=== PATIENT | female | born 1975 | race Caucasian/White ===

== ENCOUNTER 2023-02-23 20:34 | Emergency (ER) | payer OTHER, SELFPAY ==
[2023-02-23 20:37] VITALS: BP 157/72; PULSE 75; RESP 16; TEMP 36.8; O2SAT 98
--- NOTE | 2023-02-23 20:53 | ED.GENADUL_ITS ---
Discharge Plan Disposition Patient Disposition: Home Discharge Details Clinical Impression: Tick bite Primary Care Provider: None,None ED Provider: Rakel Quiñones Home Meds and New Rx's Prescriptions: New doxycycline hyclate 100 mg capsule 100 mg PO BID Qty: 20 0RF doxycycline hyclate 100 mg tablet 100 mg PO BID 10 Days Qty: 20 0RF Discharge Instructions Instructions: Tick Bite (ED) Additional Instructions: Take your antibiotic as prescribed Return with spreading redness, fever, worsening pain Discharge Data Discharge Date/Time-TO BE ENTERED AT DEPARTURE: 02/23/23 21:08 Medical Decision Making This 47-year-old female presents with erythema migrans rash to right axillary region, will initiate doxycycline for suspected Lyme disease Will initiate a 10-day course of twice daily Afebrile and nontoxic Return precautions discussed and patient expressed understanding HPI General Date/Time Provider Initiated Documentation: 02/23/23 20:40 . HPI Narrative: This 47-year-old female presents with tick bite to right arm with bull's-eye that she noted today. Denies any additional symptoms or fever. Denies chance of Related Data Home Medications Medication Instructions Recorded Confirmed doxycycline hyclate 100 mg capsule 100 mg PO BID #20 caps 02/23/23 doxycycline hyclate 100 mg tablet 100 mg PO BID 10 days #20 tabs 02/24/23 Previous Rx's Medication Instructions Recorded doxycycline hyclate 100 mg capsule 100 mg PO BID #20 caps 02/23/23 doxycycline hyclate 100 mg tablet 100 mg PO BID 10 days #20 tabs 02/24/23 General Stated Complaint: InsectBite JANAY: 4 PFSH All Active Problems (Updated 02/23/23 @ 20:57 by LARS Collado) Tick bite (Acute) Social History Smoking/Tobacco Use Status: Current every day Smoking risk assessment performed?: Yes Alcohol Intake: never Substance use type: does not use Do you feel safe at home: Yes Do you feel safe in your relationship?: Yes Exam Narrative Exam Narrative: Erythema migrans rash noted to right axillary region Course Vital Signs Vital signs: Vital Signs Temperature 36.8 C 02/23/23 20:37 Pulse 75 02/23/23 20:37 Respiratory Rate 16 02/23/23 20:37 Blood Pressure 157/72 H 02/23/23 20:37 Pulse Oximetry 98 02/23/23 20:37 Temperature 36.8 C 02/23/23 20:37 Temperature Source Temporal Artery Scan 02/23/23 20:37 Pulse 75 02/23/23 20:37 Respiratory Rate 16 02/23/23 20:37 Respiratory Effort Normal, Non-Labored 02/23/23 20:40 Blood Pressure 157/72 H 02/23/23 20:37 Blood Pressure Position Sitting 02/23/23 20:37 Pulse Oximetry 98 02/23/23 20:37 Oxygen Delivery Method Room Air 02/23/23 20:37 Oxygen Flow Rate 0 02/23/23 20:37 Pain Level 0 02/23/23 20:37
--- NOTE | 2023-02-23 21:44 | NUR.NOTE ---
Referral placed to establish primary care. None established
--- NOTE | 2023-02-24 16:48 | NUR.NOTE ---
Nursing Note: Patient needed her prescription sent to [facility] in [facility]
== END 2023-02-23 21:08 | disposition home or self-care (01) ==
LOC: ER 21:08
PROVIDERS: Emergency Provider Physician Assistant
DX: S41.151A Open bite of right upper arm, initial encounter (principal); W57.XXXA Bitten or stung by nonvenomous insect and other nonvenomous arthropods, initial encounter
CPT/HCPCS: 99283

== ENCOUNTER 2024-10-03 09:50 | Outpatient (REF) | payer BC, SELFPAY ==
[2024-10-03 15:42] LABS: Bilirubin Negative (Negative); Blood Negative (Negative); Clarity Cloudy (Clear); Glucose Negative (Negative); Ketones Negative (Negative); Leukocyte Esterase Negative (Negative); Nitrite Negative (Negative); Specific Gravity 1.025 (1.005-1.025); Urobilinogen 0.2 mg/dL (Up to 0.2); pH 5.5 (5-8)
[2024-10-03 15:44] LABS: ALT 14 U/L (14-59); AST 20 U/L (15-37); Albumin 3.9 g/dL (3.4-5.0); Alkaline Phosphatase 76 U/L (46-116); Anion Gap 7.5 mmol/L (3-11); BUN 13 mg/dL (7-18); Bilirubin, Total 0.28 mg/dL (0.2-1.0); CO2 29.5 mmol/L (21.0-32.0); CREATININE 0.6 mg/dL (0.55-1.02); Calcium 9.9 mg/dL (8.5-10.1); Calculated LDL 146 mg/dL (<100); Chloride 107 mmol/L (98-107); Cholesterol 244 mg/dL (<200); Estimated GFR 109.28 (mL/min/1.73m2); Glucose 106 mg/dL (74-106); HDL Cholesterol 77 mg/dL (40-60); Potassium 5.5 mmol/L (3.5-5.1); Sodium 144 mmol/L (136-145); Total Protein 7.5 g/dL (6.4-8.2); Triglyceride 106 mg/dL (<150)
[2024-10-03 16:24] LABS: COMMENT (LAB VIEW ONLY) 117.44 mg/dL; Microalb ug/mg Crea 9.6 ug/mg Cr
== END 2024-10-03 09:51 | disposition home or self-care (01) ==
LOC: NCHCN 09:50
PROVIDERS: PCP Nurse Practitioner Family; Visit Provider Nurse Practitioner Family
DX: E78.5 Hyperlipidemia, unspecified (principal); I10 Essential (primary) hypertension
CPT/HCPCS: 80053; 80061; 81003; 82043; 82570

== ENCOUNTER 2024-10-21 00:40 | Outpatient (CLI) | payer BC, SELFPAY ==
--- NOTE | 2024-10-21 | DI.MAMMO_ITS ---
Exam(s) MAMMO SCREENING EXAM: MAMMO SCREENING CLINICAL HISTORY: Screening, Z12.31 TECHNIQUE: Mammograms were interpreted according to the usual protocol including computer analysis w Teachable CAD system, tomosynthesis and C-view imaging. COMPARISON: No exams were available for comparison previous examinations have requested not yet rece ived. FINDINGS: The breasts are composed of scattered fibroglandular densities, Breast Density category B. No suspicious masses or suspicious microcalcifications are seen. No skin thickening or abnormal axillary lymph nodes are seen. IMPRESSION: BI-RADS Category 1, Negative mammogram Yearly screening mammography is recommended. Breast Density - Category B, scattered fibroglandular densities. A negative radiographic report should not delay biopsy if a dominant or clinically suspicious mass is present. Up to ten percent of cancers are not identified on mammography. A negative report may reinforce clinical impression. Adenosis and dense breasts may obscure an underlying neoplasm. False positive reports average 6 to 10%. Patient will receive a letter notifying them of these results.
--- NOTE | 2024-10-21 | DI.CTLCSR_ITS ---
Exam(s) CT CHEST LUNG CANCER SCREEN EXAM: CT CHEST LUNG CANCER SCREEN CLINICAL HISTORY: Screening, nicotine dependence, F17.200 TECHNIQUE: Imaging Protocol: Axial computed tomography images with coronal and sagittal reformatted images were created and reviewed. Low dose screening protocol. COMPARISON: No exams were available for comparison FINDINGS: Tracheobronchial tree: No bronchiectasis or mucus plugging. Mediastinum and Staci: No dominant adenopathy or fluid collection. Pulmonary parenchyma: No consolidation or dominant measurable mass. Minimal emphysematous changes. No significant interstitial changes. Lung Nodules: 5 millimeter mean diameter nodule medially in the left upper lobe. 3 millimeter nodule lateral superior segment of the right lower lobe. 4 millimeter nodule anterior lingula. 3.5 millim eter nodule inferior lingula. Pleura: No effusion. No pneumothorax. Heart: The heart is not dilated. No coronary artery calcifications are seen. No pericardial effusion. Aorta: Thoracic aorta non-dilated. Upper abdomen: Unremarkable. Bones: Unremarkable for age. Soft Tissues: Unremarkable. IMPRESSION: Scattered peripheral micro nodules, largest medial left upper lobe measuring 5 millimeters. Lung RADS Cat 2 - Benign Appearance / Behavior: Nodules with a very low likelihood of becoming a clin ically active cancer due to size or lack of growth Lung-RADS 1.0 CATEGORIES: Category 0 - Prior chest CT exam(s) being located for comparison. Category 1 - Annual screening in 12 months. No nodules or definitely benign nodules. Category 2 - Annual screening in 12 months. Benign appearance. Nodules with low likelihood of becomin g active cancer. Category 3 - 6-month follow-up. Probably benign. Short-term follow-up suggested. Nodules with low lik elihood of becoming active cancer. Category 4A - 3-month follow-up and CT/PET if >8 mm in size. Suspicious finding. Findings which requi re additional testing. Category 4B - Findings which require additional testing and tissue sampling. Category 4X - Category 3 or 4 nodules with additional features or imaging findings that increases the suspicion of malignancy. Modifier S- Potentially clinically significant findings (non lung cancer) RADIATION DOSE DELIVERED: !Error Total DLP DATA REPOSITORY: All CT scans at this facility are submitted to the National Radiology Data Registry (NRDR) Dose Index Registry (DIR) with the [employer] (ACR). RADIATION OPTIMIZATION: All CT scans at this facility use at least one of these dose optimization te chniques: automated exposure control; mA and/or kV adjustment per patient size (includes targeted exa ms where dose is matched to clinical indication); or iterative reconstruction.
== END 2024-10-21 01:00 ==
LOC: DI 00:40
PROVIDERS: PCP Nurse Practitioner Family; Visit Provider Nurse Practitioner Family
DX: Z12.31 Encounter for screening mammogram for malignant neoplasm of breast (principal); F17.200 Nicotine dependence, unspecified, uncomplicated; R92.323 Mammographic fibroglandular density, bilateral breasts
CPT/HCPCS: 71271; 77063; 77067

== ENCOUNTER 2024-10-21 09:04 | Outpatient (CLI) | payer BC, SELFPAY ==
[2024-10-21 09:13] LABS: Anion Gap 10.2 mmol/L (3-11); BUN 12 mg/dL (7-18); CO2 29.8 mmol/L (21.0-32.0); CREATININE 0.7 mg/dL (0.55-1.02); Calcium 9.7 mg/dL (8.5-10.1); Chloride 104 mmol/L (98-107); Glucose 94 mg/dL (74-106); Sodium 144 mmol/L (136-145)
== END 2024-10-21 09:05 | disposition home or self-care (01) ==
LOC: LBO 09:04
PROVIDERS: PCP Nurse Practitioner Family; Visit Provider Nurse Practitioner Family
DX: E87.5 Hyperkalemia (principal)
CPT/HCPCS: 36415; 80048

== ENCOUNTER 2024-11-01 14:23 | Outpatient (REF) | payer BC, SELFPAY ==
--- NOTE | 2024-11-01 08:30 | PAPFT_PTH ---
PATIENT: Roseann Wilkinson LOC: [facility] U#:[id number] AGE/SX: 49/F ROOM: RE11/01/[address]: Aziza Uribe : 1975 BED: DIS: 11/01/2024 SPEC #: [id number] RECD: 11/01/24 17:44 STATUS: [place] RENuha #: [id number] OH: 11/01/24 08:[address]: Aziza Uribe [facility] Cytology RECD BY: Rakel Lehman Tissues: 1 - CX/ENDOCX FOR PAP SMEARS Procedures: PAP THIN PREP/UVM Screening HPV DNA PROBE Comments: [id number] (HPV 16 & 18/45)
== END 2024-11-01 14:24 | disposition home or self-care (01) ==
LOC: LBN 14:23
PROVIDERS: PCP Nurse Practitioner Family; Visit Provider Nurse Practitioner Family
DX: Z11.51 Encounter for screening for human papillomavirus (HPV) (principal); Z01.419 Encounter for gynecological examination (general) (routine) without abnormal findings
CPT/HCPCS: 88142; 87624

== ENCOUNTER 2025-09-08 10:42 | Day surgery (SDC) | payer BC, SELFPAY ==
--- NOTE | 2025-09-07 19:35 | PDOC.DSDIS_ITS ---
Date of service: 09/08/25 Discharge Plan Disposition Patient Disposition: Home Condition: Good Discharge Details Reason For Visit: screening colonoscopy Attending Provider: Patrick Harding Primary Care Provider: Aziza Uribe Home Meds and New Rx's Prescriptions: Continued sertraline 100 mg tablet 100 mg PO DAILY bupropion HCl 100 mg tablet 100 mg PO TID Rx Instructions: administer 6 hours apart propranolol 10 mg tablet 10 mg PO BID Patient Comments: Per pt. states she is talking 1/2 tab BID ibuprofen [Advil] 200 mg tablet 200 mg PO Q6H PRN topiramate 50 mg tablet 50 mg PO BID Patient Comments: TAKE 1/2 TABLET BY MOUTH EVERY DAY AT BEDTIME FOR 2 WEEKS THEN INCREASE TO 1 TABLET AT BEDTIME Discontinued bisacodyl [Dulcolax (bisacodyl)] 5 mg tablet,delayed release (DR/EC) 5 mg PO ONCE Qty: 4 0RF Rx Instructions: take per colonoscopy instructions polyethylene glycol 3350 17 gram/dose powder 238 g PO ONCE Qty: 238 0RF Rx Instructions: take per colonoscopy instructions Discharge Instructions Instructions: Colon polyps, Diverticulosis Additional Instructions: Roseann, it was nice to meet you today. I hope you feel well after the colonoscopy. I did find, removed, 2 polyps today. They were quite small. I do not suspect they are anything to worry about. I will send them off to the pathologist for their review. Once we know the nature of the polyps, my office will be in touch with recommendations for future colonoscopies. Incidentally, he also have some diverticulosis. I will attach some basic information here a bout diverticulosis as well as colon and rectal polyps. If you need anything of any questions, please do not hesitate to call. 1. If tolerated, consume a soft, low fiber diet for 1-2 days. [address] not drive, drink alcohol, operate machinery, make critical decisions, or do activities that require coordination or balance for 24 hours. 3. Because air was put into your colon during the procedure, expelling air from your rectum (passing gas or farting) is normal. 4. You may not have a bowel movement for 1-3 days because of the colonoscopy prep. This is normal. 5. Go directly to the emergency room if you notice any of the following: Develop chills (warm to touch), or if you have a thermometer and your temperature is above 101 Difficulty breathing or difficultly swallowing Persistent vomiting Severe abdominal pain, other than gas cramps Severe chest pain Black, tarry stools Any bleeding ? exceeding one tablespoon 6. Call your physician if the site where your intravenous was started becomes red, swollen, painful, and warm to touch. 7. Your physician has reviewed your pre-procedure medications. Please continue to take those medications as previously ordered. You will be given specific information/education regarding any changes to your medications before leaving. Stand Alone Forms: Anesthesia Discharge Inst., [facility] (DSU), Portal Information Activity:: Activity as Tolerated Diet:: As Tolerated Discharge Orders Discharge Orders: Discharge Order (Routine); Ordered 09/07/25 Ordered By: Patrick Harding DS: Diagnosis Discharge Diagnosis (1) Encounter for screening colonoscopy: Status: Acute Asessment and Plan: Follow-up on polypectomy results
--- NOTE | 2025-09-07 19:36 | COLE_ITS ---
Date of service: 09/08/25 Time of Service: 12:30 Colonoscopy Report Date of procedure: 09/08/25 Pre-op diagnosis general: screening colonoscopy Post-op diagnosis procedure note: other (Colon polyps, diverticulosis) Procedure: Colonoscopy with polypectomy Surgeon: Patrick Harding Anesthesia Type: General:No Airway Estimated blood loss (mL): 5 Pathology: other (0.25 cm flat rectal polyp, 0.25 cm flat polyp at 20 cm) Complications: None Disposition: same day Indications: Roseann is a 50 year old woman who needs a screening colonoscopy Prep: Miralax/Dulcolax Procedure Start Time: 12:05 Procedure End Time: 12:23 Retraction Time: 9 Findings: Sigmoid diverticulosis, 0.25 cm flat rectal polyp, 0.25 cm flat polyp at 20 cm Procedure Description: After the induction of anesthesia, and with Roseann in the left lateral decubitus position, I began by performing an external anorectal exam.? 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 I do not see any evidence of active fistulous tracts.?Next, I performed a digital rectal exam.? I did not appreciate any abnormal findings.? Next, I advanced a colonoscope into the rectal vault.? I performed retroflexion.? There is a 0.25 cm flat polyp in the distal rectum. This was removed with cold forceps without any difficulty. There was minimal bleeding. Otherwise, the rectal mucosa appeared normal. I saw no evidence of any ulcerative colitis, nor signs of Crohn's disease.? Using irrigation, I then advanced the colonoscope beyond the rectal folds and into the sigmoid colon before advancing towards the cecum.?? The scope was noted to be in the cecum by identification of the ileocecal valve and appendiceal orifice.? I cannulated the terminal ileum for several centimeters. Again, the mucosa was normal and healthy appearing. I then began withdrawing the colonoscope using repeated irrigation as necessary for full evaluation of the colonic mucosa. ?Once the scope was withdrawn to the level of the rectum, great care was taken to examine portions of the rectal folds.? Around 20 cm past the anal verge was another 0.25 cm flat polyp. This was also removed with cold forceps without any difficulty. Finally, the scope was withdrawn and the patient was brought to the same-day [facility] recovery unit as the anesthetic wore off. ?The findings and instructions were shared with the patient prior to discharge. [place] Bowel Prep [place] Bowel Prep Right Colon: 3 Left Colon: 3 Transverse Colon: 3 Total Score: 9
[2025-09-08 11:02] VITALS: BP 138/74; PULSE 60; RESP 16; TEMP 36.5; O2SAT 99
[2025-09-08] MEDS: Lactated Ringers 1,000 ML 80 ML IV (11:16)
--- NOTE | 2025-09-08 11:43 | ANES.PREOP_ITS ---
General Info Date of Service Date Performed: 09/08/25 Height: 4 ft 11 in Weight: 90.6 kg Body Mass Index (BMI): 40.3 Surgical Procedure: Operation Date: 09/08/25 12:05 Proposed Procedure Side Surgeon p Asa Harding MD Meds Allergies and Home Medications Allergies Allergy/AdvReac Type Severity Reaction Status Date / Time No Known Allergies Allergy Verified 09/08/25 10:59 Home Medication ?Medication ?Instructions ?Recorded bupropion HCl 100 mg tablet 100 mg PO TID 08/16/25 ibuprofen 200 mg tablet (Advil) 200 mg PO Q6H PRN 08/05 11/29 propranolol 10 mg tablet 10 mg PO BID 08/16/25 sertraline 100 mg tablet 100 mg PO DAILY 08/16/25 topiramate 50 mg tablet 50 mg PO BID 09/06/25 Current Visit Medications: Current Medications Generic Name Dose Route Start Last Admin Trade Name Freq PRN Reason Stop Dose Admin Ringer's Solution 1,000 mls @ 80 mls/hr 09/08/25 06:00 09/08/25 11:16 IV 09/08/25 23:59 80 mls/hr INFUSION JARRETT Administration Sodium Chloride 0 ml 09/08/25 06:00 Normal Saline Flush 10 Ml Syr IV 09/08/25 23:59 PRN PRN Sodium Chloride 0 ml 09/08/25 06:00 Normal Saline 10 Ml Vial IJ 09/08/25 23:59 DIRECTED PRN Sterile Water 0 ml 09/08/25 06:00 Water,Injection,Sterile 10 Ml Vial IJ 09/08/25 23:59 DIRECTED PRN PFSH Active Problems Active Problems: Problem Status Onset Code Encounter for screening colonoscopy Acute Z12.11 Obesity Chronic E66.9 Hyperlipidemia Acute E78.5 Hypertensive disorder Chronic I10 Smoker Acute F17.200 Paresthesia of upper limb Acute R20.2 Snoring Acute R06.83 Hearing loss Acute H91.90 Medical History Medical History Depressive disorder Gastroenteritis Kidney stone Lung field abnormal Anal fistula Bilateral plantar fasciitis Pain of left hip joint Surgical History Surgical History History of colonoscopy (~2013) Hx of dilation and curettage with hysteroscopy and uterine ablation History of anal fistulotomy History of incision and drainage left breast abscess Hx laparoscopic cholecystectomy (~1994) Hx of section x2 Hx of tubal ligation Tobacco Smoking/Tobacco Use Status: Former Tobacco Use Alcohol Alcohol Intake: current Alcohol intake frequency: holidays/special occasions only Substance Use Substance use type: does not use Vital Signs and Lab Results Vital Signs Most Recent Vital Signs in EMR: Most Recent Vital Signs Temp Pulse Resp BP Pulse Ox 36.5 C 60 16 138/74 99 09/08/25 11:02 09/08/25 11:02 09/08/25 11:02 09/08/25 11:02 09/08/25 11:02 Anesthesia Assessment and Plan Anesthesia History Personal History: PONV Family History: No Family History of Anesthesia Complications Exercise Tolerance Exercise Tolerance: Metabolic Equivalents>4 Pertinent Negatives Pertinent Negatives: No Symptoms of GERD, No Major Cardiovascular Symptoms or Complaints and No Major Pulmonary Symptoms or Complaints Cardiac & Pulmonary Exam Cardiac Exam: Normal S1/S2 Heart Sounds Pulmonary Exam: Clear Bilateral Breath Sounds Implantable Cardiac Device Does patient have a Pacemaker or an ICD?: No Airway Exam Known Difficult Airway: No Mallampati Class: 1 Mouth Opening: Normal (> 3cm) Thyromental Distance: Greater than 3 cm Neck Range of Motion: Full ROM Neck Circumference: Thick Teeth Condition: Generalized Poor Dentition (Few teeth on bottom) and Edentulous ASA Classification ASA Score: ASA 3 Emergency Case?: No NPO Status NPO Status: NPO Clears >2 hours, Solids >8 hours Status Status: Not Relevant due to Medical History Anesthesia Plan Resuscitation Status: Full Code Anesthesia Technique: General Anesthesia Airway Planned: Natural Airway Monitors Used: Standard Monitors
[2025-09-08 11:51] VITALS: BMI 40.3
--- NOTE | 2025-09-08 12:09 | BOWEL_PTH ---
PATIENT: Roseann Wilkinson LOC: [facility] U#:[id number] AGE/SX: 50/F ROOM: RE09/08/[address]: Patrick Hardnig MD : 1975 BED: DIS: 09/08/2025 SPEC #: [id number] RECD: 09/08/25 12:46 STATUS: [place] RE #: [id number] [place]: 09/08/25 12:[address]: Patrick Harding DEPT: Surgical Specimen RECD BY: Rakel Lehman ENTERED: 09/08/25 12:47 SP TYPE: Bowel OTHR DR: Aziza Uribe Tissues: 1 - BIOPSY BOWEL 2 - BIOPSY BOWEL Procedures: GROSS AND MICRO LEVEL 4 Comments: [id number]
[2025-09-08 12:32] VITALS: BP 126/63; PULSE 61; RESP 16; TEMP 35.9; O2SAT 98
--- NOTE | 2025-09-08 12:49 | W.ANESPOSTOP ---
Postoperative Evaluation Date, Time and Location Date Performed: 09/08/25 Time Performed: 12:35 Patient Location: Day Surgery Unit Vital Signs Most Recent Imported Vital Signs: Most Recent Vital Signs Temp Pulse Resp BP Pulse Ox 35.9 C L 61 16 126/63 98 09/08/25 12:32 09/08/25 12:32 09/08/25 12:32 09/08/25 12:32 09/08/25 12:32 Pain Score Most Recent Pain Score: Most Recent Pain Score Pain Level 0 09/08/25 12:32 Assessment Mental Status: Arousable with meaningful communication Airway and Respiratory Function: Patent airway with normal (patient baseline) respiratory exam Cardiovascular Function: Hemodynamically Stable Hydration Status: Adequately Hydrated Nausea & Vomiting: No Nausea or Vomiting Pain: Pt. Denies Any Pain Peripheral Nerve Block: Patient did not receive a nerve block
[2025-09-08 13:03] VITALS: BP 143/71; PULSE 61; RESP 14; TEMP 36.1; O2SAT 98
== END 2025-09-08 13:12 | disposition home or self-care (01) ==
LOC: SUR 10:43
PROVIDERS: PCP Nurse Practitioner Family; Visit Provider Surgery
PROC: 0DJD8ZZ Inspection of Lower Intestinal Tract, Via Natural or Artificial Opening Endoscopic (ICD-10-PCS; CPT 45378; principal; 2025-09-08 12:00)
DX: Z12.11 Encounter for screening for malignant neoplasm of colon (principal); I10 Essential (primary) hypertension; F17.200 Nicotine dependence, unspecified, uncomplicated; K62.1 Rectal polyp; K63.5 Polyp of colon; K57.30 Diverticulosis of large intestine without perforation or abscess without bleeding
CPT/HCPCS: 45380; 88305; J2704

== ENCOUNTER 2025-09-25 09:36 | Outpatient (REF) | payer BC, SELFPAY | END 2025-09-25 09:37 | disposition home or self-care (01) | LOC: NCHCN 09:36 | PROVIDERS: PCP Nurse Practitioner Family; Visit Provider Nurse Practitioner Family | DX: I10 Essential (primary) hypertension (principal) | CPT/HCPCS: 82043; 82570 ==